=== PATIENT | female | born 1970 | race Caucasian/White ===

== ENCOUNTER 2018-10-19 20:16 | Emergency (ER) | payer BC, MEDICAID ==
[2018-10-19 21:03] VITALS: RESP 18; TEMP 98.1
[2018-10-19] MEDS ORDERED: KETOROLAC 30 MG/ML 1 ML VIAL IM STA (21:20)
[2018-10-19] MEDS ORDERED: DEXAMETHASONE ORAL 10 MG/ML (10 ML MDV) PO ONE (21:21)
--- NOTE | 2018-10-19 21:24 | ED ---
Back Pain HPI - General Chief Complaint: Back Pain/Injury Stated Complaint: LBP Time Seen by Provider: 10/19/18 21:12 Source: patient Limitations: no limitations - History of Present Illness Initial Comments: 48-year-old female presenting with sudden onset right-sided gluteal pain shooting down to her right leg. She states she bent over to pick something up in her laundry room when the pain started. She denies any midline pain, focal weakness, saddle anesthesia, difficulty having bowel or bladder movements. Denies a history of back injections. She states she did slide down the stairs a couple months ago but had no back pain or leg pain after the incident. - Related Data Home Medications Medication Instructions Recorded Confirmed Hydrochlorothiazide [Hydrodiuril] 25 mg PO DAILY 10/18/14 10/18/14 Losartan Potassium [Cozaar] 50 mg PO DAILY 10/18/14 10/18/14 Previous Rx's Medication Instructions Recorded Ondansetron Odt [Zofran ODT] 4 mg PO Q8HR PRN #20 tab 10/18/14 HYDROcodone/APAP 5-325MG [Ferdinand 5] 1 each PO Q6HR PRN #10 tab 10/19/18 Ibuprofen [Motrin] 600 mg PO Q6HR PRN #30 tab 10/19/18 Allergies Allergy/AdvReac Type Severity Reaction Status Date / Time sumatriptan [From Imitrex] Allergy Confusion Verified 10/19/18 21:02 sumatriptan succinate Allergy Confusion Verified 10/19/18 21:02 [From Imitrex] prednisone AdvReac Confusion Verified 10/19/18 21:03 Review of Systems ROS Statement: Those systems with pertinent positive or pertinent negative responses have been documented in the HPI. Review of Systems Constitutional: Denies fever, chills Eyes: Denies change in vision, Denies pain Ears, nose, mouth, throat: Denies headaches, Denies sore throat Cardiovascular: Denies chest pain. Denies palpitations Respiratory: Denies shortness of breath, Denies cough Gastrointestinal: Denies abdominal pain. Denies nausea, vomiting, diarrhea. Genitourinary: Denies hematuria, Denies infections Musculoskeletal: Positive right gluteal pain, Denies swelling Integumentary: Denies rash Neurological: Denies headache, focal weakness, focal numbness Psychiatric: Denies anxiety, Denies depression Hematologic/Lymphatic: Denies easy bleeding or bruising ROS Other: All systems not noted in ROS Statement are negative. Past Medical History Past Medical History: Hypertension History of Any Multi-Drug Resistant Organisms: None Reported Past Surgical History: Ablation, Section, Cholecystectomy Additional Past Surgical History / Comment(s): D&C Past Psychological History: Depression Smoking Status: Never smoker Past Alcohol Use History: None Reported Past Drug Use History: None Reported General Exam - General Exam Comments Initial Comments: General: Awake, alert, No acute Distress HENT: Normocephalic. Atraumatic Eyes: PERRL. EOMI. No scleral icterus. No injected conjunctiva Neck: Full ROM Chest/Lungs: Clear to auscultation bilaterally. No wheezing, rhonchi, or rales Cardiac: Regular rate, rhythm. No murmurs or rubs Abdomen/GI: Soft, nontender, nondistended. No rebound, guarding, or rigidity. Musculoskeletal: Full ROM. No midline cervical, thoracic, lumbar spinal tenderness. Positive straight leg test on the right. Skin: Warm, dry, intact Neurologic: A/Ox3, no weakness, no sensory deficit (L3-S2 sensation intact), no abnormal gait, no coordination deficit Limitations: no limitations Course Vital Signs 10/19/18 20:58 Temperature 98.1 F Pulse Rate 87 Respiratory 18 Rate Blood Pressure 134/88 O2 Sat by Pulse 96 Oximetry Medical Decision Making - Medical Decision Making 48-year-old female presenting with gluteal pain. Initial exam the patient is awake alert she is uncomfortable appearing. Her symptoms are consistent with sciatic back pain. Her x-ray was negative. She was having no cauda equina symptoms nor was she having any fevers or chills. Her symptoms improved after treatment while in the department. She was seen ambulating without any distress. Patient states she is able to follow up with her primary care physician in the next 2 days.No further emergent workup indicated. The patient was given return to ED instructions. They were instructed to follow up with their primary care provider. Stable for discharge at this time. Disposition Clinical Impression: Mechanical back pain, Sciatica Disposition: HOME SELF-CARE Condition: Good Instructions (If sedation given, give patient instructions): Acute Low Back Pain (ED), Sciatica (ED), Lower Back Exercises (ED) Prescriptions: Ibuprofen [Motrin] 600 mg PO Q6HR PRN #30 tab PRN Reason: Pain HYDROcodone/APAP 5-325MG [Ferdinand 5] 1 each PO Q6HR PRN #10 tab PRN Reason: Severe Pain Is patient prescribed a controlled substance at d/c from ED?: Yes If prescribed controlled substance>3 days was MAPS reviewed?: Prescribed <3 Days If Rx opioid, was Start Talking consent form obtained?: Yes Referrals: Dayday Winkler MD [Primary Care Provider] - 1-2 days
[2018-10-19] MEDS ORDERED: DEXAMETHASONE ORAL 10 MG/ML (10 ML MDV) ONE ×2 (22:20)
--- NOTE | 2018-10-19 22:40 | XR ---
EXAM: XR Lumbar Spine, 2 or 3 Views CLINICAL HISTORY: ITS.REASON XR Reason: Pain TECHNIQUE: Frontal and lateral views of the lumbar spine. COMPARISON: None FINDINGS: Bones/joints: No acute fracture or subluxation. Degenerative changes in the lower thoracic spine. Soft tissues: Cholecystectomy clips in the right upper quadrant. IMPRESSION: No acute abnormality identified.
[2018-10-19 23:28] VITALS: BP 137/86; PULSE 77
== END 2018-10-19 23:27 | disposition home or self-care (01) ==
LOC: EC 20:16
DX: M54.41 Lumbago with sciatica, right side (principal); I10 Essential (primary) hypertension; Z79.899 Other long term (current) drug therapy; Z88.8 Allergy status to other drugs, medicaments and biological substances
CPT/HCPCS: 72100; 99283; 96372; J1885